=== PATIENT | female | born 1965 | race Caucasian/White ===

== ENCOUNTER 2023-12-07 21:56 | Emergency (ER) | payer OTHER, SELFPAY ==
--- NOTE | 2023-12-07 23:02 | ED.SKININJ ---
HPI-Injury
General
Chief Complaint: Skin Problem
Source: family
Exam Limitations: none and other
Time Seen by Provider: 12/07/23 22:53
Nursing documentation reviewed up to this point in time: agreed with
Travel History
Have you had any contact with someone who has COVID-19?: No
Do you have any symptoms of coronavirus? Fever > 100 degrees, chills, cough, shortness of breath, sore throat, loss of taste or smell, muscle aches, or headache?: No
History of Present Illness-Injury
Is this injury a work related problem?: No
Is pt an associate of [facility]?: No
Initial Injury comments:
Patient is autistic. Family was attempting to cut her nails. Accidentally cut fingertip. Small avulsion to right distal 3rd finger. Injury occured tonight.
Past History
Past History
ED Past Medical History: Psychiatric (Autism)
ED Past Surgical History: None
Review of Systems
Review of Systems
Allergies reviewed?: Yes
All Other Systems: ROS reviewed and negative except as documented in HPI and ROS
Constitutional: Reports no symptoms
Musculoskeletal: Reports no symptoms
Skin: Reports other (Small superficial avulsion to right distal 3rd finger)
Neurological: Reports no symptoms
Psychiatric: Reports no symptoms
Skin Exam
Avulsion
Right Distal Third Finger:
Type of avulsion injury: superfical
Any active bleeding?: no active bleeding
Distal skin color and temperature: normal-warm & good color
Normal distal neurovascular exam: Yes
Phy Exam
General Physical Exam
General Presentation: well appearing and no apparent distress
General age: appears stated age
General Skin: warm and dry
General Habitus: normal
General Mental: alert
Musculoskeletal Exam
Musculoskeletal Exam: full ROM, neuro vasc intact and other (Small superficial avulsion to right distal 3rd finger. No active bleeding. Skin glue applied to site.)
Skin Exam
Skin Exam: normal color, warm/dry and no rash
Psychiatric Exam
Psychiatric Exam: normal mood/affect
Course
Vital Signs
Initial and Last Documented VS:
Initial Vital Signs
Temp Pulse Resp Pulse Ox
98.3 F 90 22 94
12/07/23 22:07 12/07/23 22:07 12/07/23 22:07 12/07/23 22:07
Last Documented Vital Signs
Temp Pulse Resp Pulse Ox
98.3 F 90 22 94
12/07/23 22:07 12/07/23 22:07 12/07/23 22:07 12/07/23 22:07
*Critical Care Note
Total Time (30-74mins, 75-104mins- exclusive of procedures): Not Applicable
ED Attending Note
-
Portions of this chart may have been created with voice recognition software.� Occasional wrong word or��sound alike� substitutions may have occurred due to the inherent limitations of voice recognition software.
Discharge Plan
Departure
Patient Disposition: Home (Routine Discharge)
Date of Disposition: 12/07/23
Time of Disposition: 23:01
Patient with high blood pressure during this ER visit?: No
Condition: Good
Covid-19: Not Applicable
Discharge Problem:
Finger laceration
Instructions: Laceration Repair With Glue ED
Activity Restrictions/Additional Instructions:
FOllow up with your family doctor as needed.
Interventions
Interventions:
*Risk Screen - Suicide Last Done: 12/07/23 22:07
*General Assessment Last Done: 12/07/23 22:07
*Neglect/Abuse Screening Last Done: 12/07/23 22:07
== END 2023-12-07 23:11 | disposition home or self-care (01) ==
LOC: EMR 21:56
PROVIDERS: EMERGENCY PHYSICIAN Emergency Medicine; FAMILY PHYSICIAN Physician Assistant Medical
DX: S61.212A Laceration without foreign body of right middle finger without damage to nail, initial encounter (principal); W26.8XXA Contact with other sharp object(s), not elsewhere classified, initial encounter; F84.0 Autistic disorder
CPT/HCPCS: 99282

== ENCOUNTER 2024-03-02 17:24 | Emergency (ER) | payer OTHER, SELFPAY ==
--- NOTE | 2024-03-02 18:16 | ED.GENMED ---
History of Present Illness
General
Chief Complaint: Weight Changes
Source: family (brother, sister in law)
Exam Limitations: none
Time Seen by Provider: 03/02/24 18:01
Travel History
Have you had any contact with someone who has COVID-19?: No
Do you have any symptoms of coronavirus? Fever > 100 degrees, chills, cough, shortness of breath, sore throat, loss of taste or smell, muscle aches, or headache?: No
History of Present Illness
History of Present Illness:
Nonverbal autistic patient to ED for report of weight loss, weakness. Patient was living with mother until Oct when mother had a stroke. Patient was then moved permanently to home of brother and sister in law Family states she was losing weight
prior to this. Now report losing hair and bruising. SHe was evaluated by PCP and labs obtained. Family told that she is anemic and that her WBC's were low. Advised to follow up with hematology. Sister in law attempted to make an appointment but
was told to come to ED instead for further evaluation. Patient is awake and calm.
Past History
Past History
ED Past Medical History: Psychiatric (Autism)
ED Past Surgical History: None, Appendectomy and Other (hernia repair as small child.)
Review of Systems
Review of Systems
Allergies reviewed?: Yes
All Other Systems: ROS reviewed and negative except as documented in HPI and ROS
Constitutional: Reports no symptoms
EENT: Reports no symptoms
Respiratory: Reports no symptoms
Cardiac: Reports no symptoms
ABD/GI: Reports no symptoms
: Reports no symptoms
Musculoskeletal: Reports no symptoms
Skin: Reports other (old bruising to legs)
Neurological: Reports weakness
Psychiatric: Reports no symptoms
Phy Exam
General Physical Exam
General Presentation: well appearing and no apparent distress
General age: appears stated age
General Skin: warm and dry
General Habitus: normal
General Mental: alert
Pulmonary Exam
Pulmonary Exam: no respiratory distress
Gastrointestinal Exam
Gastrointestinal Exam: soft and non distended
Musculoskeletal Exam
Musculoskeletal Exam: full ROM and neuro vasc intact
Skin Exam
Skin Exam: normal color, warm/dry, no rash and other (old bruising to legs)
Psychiatric Exam
Psychiatric Exam: normal mood/affect
Scores
Heart Failure Risk
Heart Failure Risk Score: Not Applicable
Course
Orders/Labs/Results
Orders:
Orders
03/02/24 18:54
CRP [C-Reactive Protein] Urgent
Complete Blood Count/With Diff Urgent
Comprehensive Metabolic Panel Urgent
Sed Rate [Erythrocyte Sed Rate] Urgent
TSH Reflex To Free T4 Urgent
03/02/24 19:09
Urinalysis Reflex To Culture Urgent
Date Specimen was Collected: 03/02/24
Time Specimen was Collected: 19:08
Abnormal Lab Results
03/02/24
18:54
WBC 2.7 L 10^3/uL
(4.8-10.8)
RBC 3.54 L 10^6/uL
(4.20-5.40)
Hgb 10.9 L g/dL
(12.0-16.0)
Hct 33.8 L %
(37.0-47.0)
MCHC 32.2 L g/dL
(33.0-37.0)
MPV 12.9 H fL
(7.4-10.4)
Absolute Neuts (auto) 1.1 L 10^3/uL
(1.4-6.5)
Absolute Lymphs (auto) 1.0 L 10^3/uL
(1.2-3.4)
Monocytes % 13.6 H %
(1.7-9.3)
ESR 39 H mm/hour
(0-20)
Carbon Dioxide 32 H mmol/L
(22-30)
BUN 33 H mg/dl
(7-17)
AST 54 H U/L
(14-36)
Total Protein 6.2 L g/dl
(6.3-8.2)
03/02/24 18:54
03/02/24 18:54
Vital Signs
Initial and Last Documented VS:
Initial Vital Signs
Pulse Resp BP Pulse Ox
80 118/83 97
03/02/24 19:15 03/02/24 19:15 03/02/24 19:15 03/02/24 19:15
Last Documented Vital Signs
Pulse Resp BP Pulse Ox
118/83 97
03/02/24 19:15 03/02/24 19:15 03/02/24 19:15 03/02/24 19:15
*Critical Care Note
Total Time (30-74mins, 75-104mins- exclusive of procedures): Not Applicable
ED Attending Note
-
Portions of this chart may have been created with voice recognition software.� Occasional wrong word or��sound alike� substitutions may have occurred due to the inherent limitations of voice recognition software.
Discharge Plan
Departure
Patient Disposition: Home (Routine Discharge)
Date of Disposition: 03/02/24
Time of Disposition: 20:11
Patient with high blood pressure during this ER visit?: No
Condition: Good
Covid-19: Not Applicable
Discharge Problem:
Weight decrease
Instructions: Generalized Weakness
Referrals:
Brandy Rosario PA-C [Family Provider] - Follow up in 2-3 days
Interventions
Interventions:
*Risk Screen - Suicide Last Done: 03/02/24 18:33
*General Assessment Last Done: 03/02/24 18:33
*Neglect/Abuse Screening Last Done: 03/02/24 18:33
ED- Fall Risk Assessment Last Done: 03/02/24 19:15
*ED COVID-19 Vaccine History Last Done: 03/02/24 17:26
Discharge Date and Time
Print Language: ARMENIAN
[2024-03-02 18:28] VITALS: BMI 16.4
[2024-03-02 19:02] LABS: % Basophils 1.1 % (0-2); % Eosinophils 5.7 % (0-6); % Monocytes 13.6 % (1.7-9.3); % Neutrophils 42.6 % (42.2-75.2); Absolute Eosinophils 0.2 10^3/uL (0-0.7); Absolute Monocytes 0.4 10^3/uL (0.1-0.6); Absolute Neutrophils 1.1 10^3/uL (1.4-6.5); Hematocrit 33.8 % (37.0-47.0); Hemoglobin 10.9 g/dL (12.0-16.0); Mean Corp Hgb Conc. 32.2 g/dL (33.0-37.0); Mean Corpuscular Hgb 30.8 pg (27.0-31.0); Mean Corpuscular Volume 95.5 fL (81.0-99.0); Mean Platelet Volume 12.9 fL (7.4-10.4); Nucleated Red Blood Cells % 0 %; Platelet Count 155 10^3/uL (130-400); Red Blood Cell Count 3.54 10^6/uL (4.20-5.40); Red Cell Dist. Width 13.1 % (11.5-14.5); White Blood Cell Count 2.7 10^3/uL (4.8-10.8)
[2024-03-02 19:15] VITALS: BP 118/83
[2024-03-02 19:19] LABS: Urine Albumin Trace (Neg - Trace); Urine Bilirubin Negative (Negative); Urine Character Clear (Clear); Urine Color Yellow; Urine Glucose Negative (Negative); Urine Ketone Negative (Negative); Urine Leukocyte Negative (Negative); Urine Nitrite Negative (Negative); Urine Occult Blood Negative (Negative); Urine Urobilinogen Negative (Neg - 1+)
[2024-03-02 19:24] LABS: ALT (SGPT) 12 U/L (0-35); AST (SGOT) 54 U/L (14-36); Albumin 3.5 g/dl (3.5-5.0); Alkaline Phosphatase 62 U/L (38-126); Blood Urea Nitrogen 33 mg/dl (7-17); Calcium 8.9 mg/dl (8.4-10.2); Carbon Dioxide 32 mmol/L (22-30); Chloride 106 mmol/L (98-107); Estimated Creatinine Clearance 44 ml/min; Glucose 91 mg/dl (70-99); Potassium 4.2 mmol/L (3.5-5.1); Sodium 139 mmol/L (135-145); Total Bilirubin 0.2 mg/dl (0.2-1.3); Total Protein 6.2 g/dl (6.3-8.2); eGFR > 60.00
[2024-03-02 19:25] LABS: C-Reactive Protein < 5.00 mg/L (0.0-10.00)
[2024-03-02 19:27] LABS: Erythrocyte Sed Rate 39 mm/hour (0-20)
[2024-03-02 19:52] LABS: TSH Reflex To Free T4 1.25 uIU/ml (0.47-4.68)
[2024-03-02 21:00] VITALS: BP 102/60
== END 2024-03-02 21:23 | disposition home or self-care (01) ==
LOC: EMR 17:24
PROVIDERS: Nurse Practitioner; EMERGENCY PHYSICIAN Emergency Medicine; FAMILY PHYSICIAN Physician Assistant Medical
DX: R53.1 Weakness (principal); R63.4 Abnormal weight loss; L65.9 Nonscarring hair loss, unspecified; R58 Hemorrhage, not elsewhere classified; F84.0 Autistic disorder
CPT/HCPCS: 99283; 80053; 81003; 84443; 85025; 85652; 86140

== ENCOUNTER → 2024-03-08 09:00 | Outpatient (REF) | payer OTHER, SELFPAY | LOC: HWRAD 09:00 | PROVIDERS: ATTENDING PHYSICIAN Obstetrics & Gynecology Gynecology; FAMILY PHYSICIAN Physician Assistant Medical | DX: N95.0 Postmenopausal bleeding (principal) | CPT/HCPCS: 76856 ==

== ENCOUNTER → 2025-09-13 08:21 | Outpatient (REF) | payer OTHER, SELFPAY | LOC: RCS 08:21 | PROVIDERS: ATTENDING PHYSICIAN Physician Assistant Medical | DX: Z01.818 Encounter for other preprocedural examination (principal); F84.0 Autistic disorder; Z00.01 Encounter for general adult medical examination with abnormal findings; K00.0 Anodontia; D64.9 Anemia, unspecified | CPT/HCPCS: 93225; 93226 ==